=== PATIENT | male | born 1985 | race Caucasian/White ===

== ENCOUNTER 2019-12-25 22:13 | Emergency (ER) | payer OTHER ==
--- NOTE | 2019-12-25 22:38 | ERPHSYRPT ---
- History of Present Illness Time Seen by Provider: 12/25/19 22:30 Source: patient Exam Limitations: no limitations Physician History: Pt states yesterday at work([employer]) a piano fell on his left wrist with resultant pain; denies numbness of left hand digits. Allergies/Adverse Reactions: Penicillins Allergy (Severe, Verified 12/25/19 22:44) Difficulty Breathing RASH Home Medications: Chlorthalidone 25 mg PO DAILY 12/25/19 [History] Lisinopril 10 mg [Zestril 10 MG] 10 mg PO DAILY 12/25/19 [History] - Review of Systems Musculoskeletal: Joint Pain (left wrist pain) - Past Medical History Pertinent Past Medical History: Yes Neurological History: No Pertinent History ENT History: No Pertinent History Cardiac History: Hypertension Respiratory History: Asthma Endocrine Medical History: No Pertinent History Musculoskeletal History: No Pertinent History GI Medical History: No Pertinent History History: No Pertinent History Psycho-Social History: No Pertinent History Male Reproductive Disorders: No Pertinent History - Past Surgical History Past Surgical History: No Neuro Surgical History: No Pertinent History Cardiac: No Pertinent History Respiratory: No Pertinent History Gastrointestinal: No Pertinent History Genitourinary: No Pertinent History Musculoskeletal: No Pertinent History Male Surgical History: No Pertinent History - Social History Drug Use: none - Nursing Vital Signs Nursing Vital Signs: Initial Vital Signs Temperature 98.6 F 12/25/19 22:26 Pulse Rate 83 12/25/19 22:26 Respiratory Rate 18 12/25/19 22:26 Blood Pressure 131/95 12/25/19 22:26 O2 Sat by Pulse Oximetry 97 12/25/19 22:26 Pain Scale Pain Intensity 7 - Physical Exam General Appearance: alert Shoulder Exam: normal ROM Elbow/Forearm Exam: normal ROM Wrist Exam: normal ROM, soft tissue tenderness (mild tenderness over radial aspect of left wrist with minimal edema.) Hand Exam: normal ROM Neuro/Tendon Exam: normal sensation, normal motor functions, normal tendon functions Mental Status Exam: alert, cooperative Skin Exam: warm, dry SpO2 Interpretation: normal SpO2: 97 O2 Delivery: Room Air - Course Nursing assessment & vital signs reviewed: Yes - Radiology Exams Left Wrist X-ray Interpretation: Discussed w/ radiologist (Negative for fracture or dislocation.) Ordered Tests: Active Orders 24 hr Category Date Time Status Doc Bandage Application -[facility] STAT Care 12/25/19 22:38 Active Sling Application STAT Care 12/25/19 22:38 Active WRIST (MIN 3 VIEWS) Stat Exams 12/25/19 22:39 Taken Medication Summary Discontinued Medications Generic Name Dose Route Start Last Admin Trade Name Andrzej PRN Reason Stop Dose Admin Ibuprofen 600 mg 12/25/19 22:40 12/25/19 22:56 Motrin 600 Mg PO 12/25/19 22:41 600 mg STAT ONE Administration Ibuprofen Confirm 12/25/19 22:55 Motrin 600 Mg Administered 12/25/19 22:56 Dose 600 mg .ROUTE .STPin or Peg-MED ONE - Progress Progress: unchanged Counseled pt/family regarding: need for follow-up, rad results - Departure Departure Disposition: Home Clinical Impression: Contusion of left wrist Condition: Stable Critical Care Time: No Referrals: DOCTOR,NO FAMILY [Primary Care Provider] - Instructions: Contusion (DC) Additional Instructions: Follow up with private doctor tomorrow. Elevate left wrist above heart level for the next 24 hours. Wear left arm sling for comfort. Forms: Work/School Release Form Prescriptions: Naproxen [Naprosyn] 500 mg PO [id number] PRN #14 tablet PRN Reason: Pain
[2019-12-25] MEDS ORDERED: MOTRIN 600 MG PO ONE (22:40)
[2019-12-25] MEDS ORDERED: MOTRIN 600 MG ONE (22:55)
[2019-12-26 02:29] VITALS: BP 145/97; PULSE 84; O2SAT 98
--- NOTE | 2019-12-26 07:12 | XRAY ---
Indication: Pain following injury. Comparison: None 3 view left wrist demonstrates degenerative spur base of 1st proximal phalanx. No other bony, articular, or soft tissue abnormalities. Comment: Preliminary interpretation was made by [facility]. No critical discrepancy.
== END 2019-12-26 02:26 | disposition home or self-care (01) ==
LOC: ED 22:13
DX: S60.212A Contusion of left wrist, initial encounter (principal); M25.532 Pain in left wrist; W22.8XXA Striking against or struck by other objects, initial encounter; Y99.0 Civilian activity done for income or pay
CPT/HCPCS: 73110; 99284; A9270-GY

== ENCOUNTER 2020-12-15 21:11 | Emergency (ER) | payer OTHER ==
[2020-12-15 21:33] VITALS: O2SAT 98
[2020-12-15] MEDS ORDERED: Zofran 4 MG/2 ML VIAL IV ONE (21:40)
[2020-12-15] MEDS ORDERED: TORAdol 30 mg Injection IV ONE (21:40)
[2020-12-15] MEDS ORDERED: Sodium Chloride 0.9% 1000 ML 1,000 ML IV STA (21:40)
--- NOTE | 2020-12-15 21:41 | ERPHSYRPT ---
- History of Present Illness Time Seen by Provider: 12/15/20 21:30 Historian: patient Exam Limitations: no limitations Patient Subjective Stated Complaint: "I have a kidney stone and my stomach hurts." Triage Nursing Assessment: Pt reported having a CT on 12/11/20 that revealed a left kidney stone. He was prescribed an antibiotic for this. He reported that the pain has worsened since Friday. Denied N/V/D. Pain is dull/crampy and non-radiating. Last BM just before arriving at the ED and normal for the patient. Symmetrical chest expansion. Abdomen non-distended, non-surgical, and without peritoneal sings. No umbilical ecchymosis. Bowel sounds present in all quadrants. tenderness upon palpation of the LLQ without rebound or guarding. Physician History: This is a 35-year-old white male who has a history of elevated cholesterol, gout, and hypertension who drove himself to the emergency room department today but can get a ride home if need be and presents with left lower quadrant abdominal pain. Patient was seen at [facility] on 2020-12-11 complaint of flank pain with radiation pain into the left groin area. He was told he had a "left kidney stone". He has a scheduled appointment to see a urologist, Dr. Velazquez, on 2020-12-26. In last 2 days the pain has moved to the lower quadrant and has worsened. He has no chest pain. He is no shortness of breath. Timing/Duration: day(s) (2), worse Quality: sharpness, stabbing Abdominal Pain Onset Location: LLQ Pain Radiation: no radiation Severity of Pain-Max: moderate Severity of Pain-Current: moderate Modifying Factors: Improves With: nothing Associated Symptoms: denies symptoms Previous symptoms: same symptoms as today, recently seen, recently treated Allergies/Adverse Reactions: Penicillins Allergy (Severe, Verified 12/15/20 21:18) Difficulty Breathing RASH Home Medications: Lisinopril 10 mg [Zestril 10 MG] 10 mg PO DAILY 12/25/19 [History] Allopurinol 300 mg [Zyloprim 300 mg] 300 mg PO DAILY 12/15/20 [History] Atorvastatin Calcium 20 mg PO DAILY 12/15/20 [History] Buspirone HCl [Buspar] 10 mg PO DAILY 12/15/20 [History] Hx Tetanus, Diphtheria Vaccination/Date Given: Yes Hx Influenza Vaccination/Date Given: No Hx Pneumococcal Vaccination/Date Given: No Travel Risk - International Travel Have you traveled outside of the country in past 3 weeks: No - Coronavirus Screening Are you exhibiting any of the following symptoms?: No Close contact with a COVID-19 positive Pt in past 14-21 Days: No - Vaccine Status Have you recieved a Covid-19 vaccination: No - Review of Systems Constitutional: No Symptoms Eyes: No Symptoms Ears, Nose, & Throat: No Symptoms Respiratory: No Symptoms Abdominal/Gastrointestinal: Abdominal Pain (Left lower quadrant) Genitourinary Symptoms: No Symptoms Musculoskeletal: No Symptoms Skin: No Symptoms Neurological: No Symptoms Psychological: No Symptoms Endocrine: No Symptoms Hematologic/Lymphatic: No Symptoms Immunological/Allergic: No Symptoms All Other Systems: Reviewed and Negative - Past Medical History Pertinent Past Medical History: Yes Neurological History: No Pertinent History ENT History: No Pertinent History Cardiac History: Hypertension Respiratory History: Asthma Endocrine Medical History: No Pertinent History Musculoskeletal History: No Pertinent History GI Medical History: No Pertinent History History: No Pertinent History, Other Psycho-Social History: No Pertinent History Male Reproductive Disorders: No Pertinent History Other Medical History: Kidney stones - Past Surgical History Past Surgical History: No Neuro Surgical History: No Pertinent History Cardiac: No Pertinent History Respiratory: No Pertinent History Gastrointestinal: No Pertinent History Genitourinary: No Pertinent History Musculoskeletal: No Pertinent History Male Surgical History: No Pertinent History - Social History Smoking Status: Never smoker Exposure to second hand smoke: No Drug Use: none Patient Lives Alone: No - Nursing Vital Signs Nursing Vital Signs: Initial Vital Signs Temperature 98.3 F 12/15/20 21:12 Pulse Rate 69 12/15/20 21:12 Respiratory Rate 18 12/15/20 21:12 Blood Pressure 128/76 12/15/20 21:12 O2 Sat by Pulse Oximetry 98 12/15/20 21:12 Pain Scale Pain Intensity 7 - Physical Exam General Appearance: no apparent distress, alert, anxiety Eye Exam: PERRL/EOMI, eyes nml inspection Ears, Nose, Throat Exam: normal ENT inspection, moist mucous membranes Neck Exam: normal inspection, non-tender, supple, full range of motion Respiratory Exam: normal breath sounds, lungs clear, airway intact, No chest tenderness, No respiratory distress Cardiovascular Exam: regular rate/rhythm, normal heart sounds, normal peripheral pulses Gastrointestinal/Abdomen Exam: soft, normal bowel sounds, tenderness (Left lower quadrant), guarding, No rebound Rectal Exam: not done Back Exam: normal inspection, normal range of motion, No CVA tenderness, No vertebral tenderness Extremity Exam: normal inspection, normal range of motion, pelvis stable Neurologic Exam: alert, oriented x 3, cooperative, media production manager II-XII nml as tested, normal mood/affect, nml cerebellar function, nml station & gait, sensation nml Skin Exam: normal color, warm, dry Lymphatic Exam: No adenopathy SpO2 Interpretation: normal SpO2: 98 O2 Delivery: Room Air - Course Nursing assessment & vital signs reviewed: Yes Ordered Tests: Active Orders 24 hr Category Date Time Status IV Insertion STAT Care 12/15/20 21:40 Active ABDOMEN AND PELVIS W/0 CONTRAS [CT] Stat Exams 12/15/20 21:41 Taken AMYLASE Stat Lab 12/15/20 21:40 Completed CBC W DIFF Stat Lab 12/15/20 21:40 Completed CMP Stat Lab 12/15/20 21:40 Completed LIPASE Stat Lab 12/15/20 21:40 Completed Lactic Acid Stat Lab 12/15/20 21:40 Completed UA W/RFX UR CULTURE Stat Lab 12/15/20 Ordered Medication Summary Discontinued Medications Generic Name Dose Route Start Last Admin Trade Name Freq PRN Reason Stop Dose Admin Hydromorphone HCl 1 mg 12/15/20 22:07 12/15/20 22:12 Hydromorphone 1 Mg/1ml Inj 1 Mg/Ml Syringe IV 12/15/20 22:08 1 mg STAT ONE Administration Hydromorphone HCl Confirm 12/15/20 22:12 Hydromorphone 1 Mg/1ml Inj 1 Mg/Ml Syringe Administered 12/15/20 22:13 Dose 1 mg .ROUTE .STK-MED ONE Sodium Chloride 1,000 mls @ 999 mls/hr 12/15/20 21:40 12/15/20 21:48 Sodium Chloride 0.9% 1000 Ml IV 12/15/20 22:40 999 mls/hr .Q1H1M STA Administration Sodium Chloride Confirm 12/15/20 21:46 Sodium Chloride 0.9% 1000 Ml Administered 12/15/20 21:47 Dose 1,000 mls @ ud .ROUTE .STK-MED ONE Ketorolac Tromethamine 30 mg 12/15/20 21:40 12/15/20 21:51 Ketorolac Tromethamine 30 Mg/Ml Inj IV 12/15/20 21:41 30 mg STAT ONE Administration Ketorolac Tromethamine Confirm 12/15/20 21:46 Ketorolac Tromethamine 30 Mg/Ml Inj Administered 12/15/20 21:47 Dose 30 mg .ROUTE .STK-MED ONE Ondansetron HCl 4 mg 12/15/20 21:40 12/15/20 21:49 Ondansetron Hcl 4 Mg/2 Ml Vial IV 12/15/20 21:41 4 mg STAT ONE Administration Ondansetron HCl Confirm 12/15/20 21:46 Ondansetron Hcl 4 Mg/2 Ml Vial Administered 12/15/20 21:47 Dose 4 mg .ROUTE .STK-MED ONE Lab/Rad Data: Laboratory Result Diagrams 12/15/20 21:40 12/15/20 21:40 Laboratory Results 12/15/20 12/15/20 12/15/20 Range/Units 21:40 21:40 21:40 WBC 7.8 (4.0-10.5) K/mm3 RBC 5.07 (4.1-5.6) M/mm3 Hgb 14.5 (12.5-18.0) gm/dl Hct 44.1 (42-50) % MCV 87.0 (78-100) fl MCH 28.6 (26-32) pg MCHC 32.9 (32-36) g/dl RDW 14.4 H (11.5-14.0) % Plt Count 230 (150-450) K/mm3 MPV 10.7 (7.5-11.0) fl Gran % 63.4 (36.0-66.0) % Eos # (Auto) 0.21 (0-0.5) Absolute Lymphs (auto) 1.85 (1.0-4.6) Absolute Monos (auto) 0.77 (0.0-1.3) Lymphocytes % 23.7 L (24.0-44.0) % Monocytes % 9.9 (0.0-12.0) % Eosinophils % 2.7 (0.00-5.0) % Basophils % 0.3 (0.0-0.4) % Absolute Granulocytes 4.96 (1.4-6.9) Basophils # 0.02 (0-0.4) Sodium 138 (137-145) mmol/L Potassium 4.0 (3.5-5.1) mmol/L Chloride 102 (98-107) mmol/L Carbon Dioxide 26 (22-30) mmol/L Anion Gap 14.0 (5-15) MEQ/L BUN 19 (9-20) mg/dL Creatinine 1.22 (0.66-1.25) mg/dL Estimated GFR > 60.0 ML/MIN Glucose 96 (74-106) mg/dL Lactic Acid 1.3 (0.4-2.0) Calcium 9.5 (8.4-10.2) mg/dL Total Bilirubin 0.50 (0.2-1.3) mg/dL AST 24 (17-59) U/L ALT 28 (0-50) U/L Alkaline Phosphatase 96 (38-126) U/L Serum Total Protein 7.2 (6.3-8.2) g/dL Albumin 4.1 (3.5-5.0) g/dL Amylase 61 (30-110) U/L Lipase 63 (23-300) U/L - Progress Progress: improved, pain not gone completely Progress Note: 12/15/20 23:24 CAT scan of the abdomen and pelvis without contrast shows a 5 mm mid right ureteral stone with trace right hydronephrosis and hydroureter. 12/15/20 23:38 Although the patient's symptoms are in the left lower quadrant, the CAT scan shows a 5 mm right sided mid ureteral stone with trace right hydronephrosis and hydroureter. This was verified with the radiologist at [facility]. Counseled pt/family regarding: lab results, diagnosis, need for follow-up, rad results - Departure Departure Disposition: Home Clinical Impression: Ureterolithiasis Condition: Stable Critical Care Time: No Referrals: MESSI HAWKINS MD [Primary Care Provider] - Additional Instructions: Drink plenty of fluids. Add ibuprofen to pain medications as written for. Keep your appointment with your urologist on 12/26/2020. Return to the emergency department if symptoms worsen Prescriptions: Hydrocodone/APAP 5/325 [[place] 5/325 mg] 1 each PO Q8H PRN PRN #6 tablet MDD 3 PRN Reason: Pain
[2020-12-15] MEDS ORDERED: Zofran 4 MG/2 ML VIAL ONE (21:46)
[2020-12-15] MEDS ORDERED: Sodium Chloride 0.9% 1000 ML 1,000 ML ONE (21:46)
[2020-12-15] MEDS ORDERED: TORAdol 30 mg Injection ONE (21:46)
[2020-12-15 21:47] LABS: Absolute Neutrophil Ct (ANC) 4.96 (1.4-6.9); BASOPHIL % 0.3 % (0.0-0.4); Basophil (Absolute #) 0.02 (0-0.4); Eosinophil % 2.7 % (0.00-5.0); Eosinophil (Absolute #) 0.21 (0-0.5); Hematocrit 44.1 % (42-50); Hemoglobin 14.5 gm/dl (12.5-18.0); Lymphocyte (Absolute #) 1.85 (1.0-4.6); Lymphocytes % 23.7 % (24.0-44.0); Mean Corpuscular Hemoglobin 28.6 pg (26-32); Mean Corpuscular Hgb Concent. 32.9 g/dl (32-36); Mean Platelet Volume 10.7 fl (7.5-11.0); Monocyte (Absolute #) 0.77 (0.0-1.3); Monocytes % 9.9 % (0.0-12.0); Neutrophil % 63.4 % (36.0-66.0); Platelet Count 230 K/mm3 (150-450); Red Blood Count 5.07 M/mm3 (4.1-5.6); Red Cell Distribution Width 14.4 % (11.5-14.0); White Blood Count 7.8 K/mm3 (4.0-10.5)
[2020-12-15 21:57] LABS: ALBUMIN 4.1 g/dL (3.5-5.0); ALKALINE PHOSPHATASE 96 U/L (38-126); AMYLASE 61 U/L (30-110); BLOOD UREA NITROGEN 19 mg/dL (9-20); CHLORIDE 102 mmol/L (98-107); Calcium 9.5 mg/dL (8.4-10.2); Carbon Dioxide 26 mmol/L (22-30); Creatinine 1 1.22 mg/dL (0.66-1.25); EST GLOMERULAR FILTRATION RATE > 60.0 ML/MIN; Glucose 96 mg/dL (74-106); LIPASE 63 U/L (23-300); SGOT/AST 24 U/L (17-59); SGPT/ALT 28 U/L (0-50); SODIUM 138 mmol/L (137-145); Total Protein 7.2 g/dL (6.3-8.2)
[2020-12-15] MEDS ORDERED: Hydromorphone 1 mg/ml Injection IV ONE (22:07)
[2020-12-15] MEDS ORDERED: Hydromorphone 1 mg/ml Injection ONE (22:12)
[2020-12-15] MEDS ORDERED: NORCO 5/325 MG PO ONE (23:39)
[2020-12-16] MEDS ORDERED: NORCO 5/325 MG ONE (00:19)
[2020-12-16 00:34] VITALS: BP 100/68; PULSE 70
--- NOTE | 2020-12-16 08:45 | XRAY ---
Indication: Left abdomen pain. Hematuria. Kidney stone. Multiple contiguous axial images obtained through the abdomen and pelvis without contrast. Comparison: None Lung bases demonstrates mild right lower lobe subsegmental atelectasis/scarring. No infiltrate or effusion. Heart not enlarged. Noncontrasted stomach and bowel loops appear nonobstructed. Normal appendix. No free fluid/air. 6 mm right mid ureter calculus, approximately S2 level. Proximal right ureter is slightly prominent along with moderate hydronephrosis consistent with obstructive uropathy. No perinephric fluid. Left kidney demonstrates nonobstructing punctate calculus and 1.5 cm left mid renal cyst. Remaining liver, gallbladder, pancreas, spleen, adrenal glands, kidneys, ureters and bladder, and aorta are unremarkable for noncontrast exam. Osseous structures intact. Impression: 1. 6 mm right mid ureter calculus producing partial obstruction as detailed. 2. Incidental nonobstructing left renal punctate calculus and small left renal cyst. Comment: Preliminary interpretation made by C. No critical discrepancy.
== END 2020-12-16 00:32 | disposition home or self-care (01) ==
LOC: ED 21:11
DX: N13.2 Hydronephrosis with renal and ureteral calculous obstruction (principal)
CPT/HCPCS: 36000; 36415; 74176; 80053; 82150; 83605; 83690; 85025; 96374; 96375; 99284; J1170; J1885; J2405; A9270-GY